=== PATIENT | male | born 1950 | race Caucasian/White ===

== ENCOUNTER 2022-06-20 07:45 | Observation (INO) | payer MEDICARE, SELFPAY ==
[2022-06-20] VITALS (47 sets, daily range): BP systolic 102–163; BP diastolic 57–85; PULSE 84–120; RESP 12–34; TEMP 36.8–36.9; O2SAT 87–100; BMI 23.7; BMI 24.9
--- NOTE | 2022-06-20 07:48 | CT_ITS ---
WS: [id number] CT ABDOMEN AND PELVIS WITH CONTRAST HISTORY: Lower abdominal pain with nausea and vomiting. TECHNIQUE: Imaging performed of the abdomen and pelvis with IV contrast. Single phase imaging of the abdomen. Coronal and sagittal reformats are submitted. All CT scans at [facility] use at [address] one of these dose optimization techniques: automated exposure control; mA and/or kV adjustment per patient size (includes targeted exams where dose is matched to clinical indication); or iterative re construction. IV CONTRAST: Omnipaque 350; 80 mL IV. Oral contrast: No DLP: 508.66 mGy.cm COMPARISON: None available. Lower thorax: Benign granuloma RIGHT lung base. Heart is normal size. Small hiatal hernia. Liver/biliary system: Normal size liver. There are a few very tiny low-attenuation nodules within the liver which cannot be further characterized due to their small size. No bile duct dilatation. Gallbladder: Normal. No gallstones or wall thickening. No pericholecystic fluid. Pancreas: Normal size pancreas and pancreatic duct. No adjacent inflammation. Spleen: Normal size with granulomata. Adrenal glands: Normal. Right kidney: Normal size RIGHT kidney. No significant perinephric stranding and no obstruction. Ther e are several very small nonobstructing calculi within the renal pelvis measuring up to 3 mm. Left kidney: Normal. Aorta: Mild atherosclerosis with no aneurysm. Lymphadenopathy: None. Free fluid: None. GI tract: Moderately well distended stomach. No significant wall thickening. No focal area of active enhancement or extravasation. No small bowel obstruction. Marked fecal retention and constipation in the cecum. The appendix appears normal. Numerous diverticula in the descending and sigmoid colon. Mil d luminal narrowing from chronic diverticulosis. No evidence for acute diverticulitis. No free fluid or abscess. Abdominal wall: Fat containing umbilical hernia. Pelvis: Well-distended urinary bladder. Calcifications in the seminal vesicles. No free fluid or eunice opathy. Bones: Mild degenerative disc disease and spondylitic changes in the lumbar spine. No destructive bon e lesions. CT/CT abdomen pelvis w con* [id number] IMPRESSION: 1. Extensive diverticulosis in the descending and sigmoid colon wall thickenin g. At this time no definite evidence for acute diverticulosis. 2. Marked constipation of the cecum. Normal appendix. 3. No free fluid or free air. 4. Small hiatal hernia. 5. Nonobstructing RIGHT renal calculi. 6. There are a few scattered too small to characterize hypodensities within th e liver. Differential includes small cysts or very early metastatic disease.
--- NOTE | 2022-06-20 08:04 | PC.NURSE ---
pt reports is vomiting blood. pt reports continuous nausea and abdominal pain. denies fevers or diarrhea. pt lung sounds clear bilat, skin pink/warm/dry. bowel sounds present x4. abdomen soft and tender to palpation.
--- NOTE | 2022-06-20 08:06 | ED_ITS ---
HPI - Abdominal Pain General: Chief Complaint: Abdominal Pain Stated Complaint: Vomitting blood Time Seen by Provider: 06/20/22 07:46 Source: patient Mode of arrival: ambulatory History of Present Illness: 71-year-old male presents emergency room with complaints of hematemesis. Began vomiting around midnight last night felt full and bloated throughout the night had multiple episodes of vomiting and then early this morning had hematemesis filled the bottom of a small trash can with what he states is about an inch or 2 of blood. He is not on any anticoagulants no history of previous abdominal surgeries no previous history of ulcers. No chest pain no shortness of breath. MD elicited complaint: abdominal pain Onset (ago): hour(s) Pain Consistency: constant Location: Epigastric Severity: moderate Quality: stabbing Radiation: none Migration to: no migration Exacerbating factors: vomiting Relieving factors: nothing Associated Symptoms: Reports bloating, GI cramping, dyspepsia and poor appetite; Denies anorexia, belching, change in bowel habits, change in stool character, chills, coffee ground emesis, constipation, diarrhea, dysuria, excessive flatus, fever(s), heartburn, hematochezia, hematuria, hematemesis, fecal incontinence, loose stools, melena, nausea, syncope and vomiting Review of Systems Const: Denies: fever(s), chills, body aches, change in appetite, fatigue or malaise ENMT: Denies: throat pain, ear or mastoid pain, nasal discharge or nasal congestion Card: Denies: chest pain, edema, syncope, dyspnea on exertion or orthopnea Resp: Denies: dyspnea, productive cough or non-productive cough GI: Reports: bloating and GI cramping; Denies: abdominal pain, nausea, vomiting, hematemesis, coffee ground emesis, heartburn, diarrhea, constipation, belching, excessive flatus, fecal incontinence, change in bowel habits, change in stool character, hematochezia or melena : Denies: flank pain, dysuria, urinary frequency, urinary urgency or hematuria Skin/Breast: Denies: rash or pruritus PFS ED PFSH: Medical History (Updated 06/20/22 @ 11:16 by Jossue Noble DO) Hyperlipidemia Hypertension Umbilical hernia Surgical History (Updated 06/20/22 @ 10:36 by Lukas Estrella MD) History of ankle surgery History of back surgery History of knee surgery History of tonsillectomy No pertinent past surgical history Family History (Updated 06/20/22 @ 10:36 by Lukas Estrella MD) Other Dementia Social History (Updated 06/20/22 @ 08:10 by Jossue Noble DO) Smoking and tobacco status: never smoked Alcohol intake: current Alcohol intake frequency: holidays/special occasions only Physical Exam Const: GENERAL APPEARANCE: cooperative and comfortable ORIENTATION/CONSCIOUSNESS: Yes awake, Yes oriented to person, Yes oriented to place and Yes oriented to time HENMT: COMMON NORMALS: normocephalic, atraumatic and hearing grossly normal bilaterally HEAD & SCALP: normocephalic and atraumatic Resp: COMMON NORMALS: normal respiratory effort, No retractions, No use of accessory muscles and clear to auscultation bilaterally AUSCULTATION: clear to auscultation bilaterally Cardio: COMMON NORMALS: regular rate, regular rhythm and No murmurs present (Cardio) RATE: regular rate RHYTHM: regular rhythm GI: COMMON NORMALS: No hepatosplenomegaly present AUSCULTATION: Yes normoactive bowel sounds PALPATION: Yes Tenderness to palpation present (GI) (Diffuse abdominal tenderness no guarding no rebound), No Guarding due to palpation present (GI) and Yes No hepatosplenomegaly present PERCUSSION: normal to percussion OTHER: Umbilical hernia mild tenderness easily reducible did cause some discomfort : COMMON NORMALS: Yes no CVA tenderness BLADDER/KIDNEY EXAM: Yes no CVA tenderness Back/Pelvis: COMMON NORMALS: no CVA tenderness Extremity: COMMON NORMALS: normal to inspection, capillary refill normal, no clubbing, cyanosis or edema, no calf tenderness and no pedal edema Neuro: SENSORIUM/ORIENTATION: Yes oriented to person, Yes oriented to place and Yes oriented to time Skin: COMMON NORMALS: no rashes or lesions noted GENERAL SKIN EXAM: no rashes or lesions noted Course Vital Signs: Vital signs: Vital Signs Temperature 98.3 F 06/20/22 08:48 Pulse Rate 107 H 06/20/22 13:45 Respiratory Rate 12 06/20/22 13:45 Blood Pressure 133/67 06/20/22 13:45 Pulse Oximetry 91 06/20/22 13:45 Oxygen Delivery Me thod 06/20/22 07:50 MDM - Abdominal Pain Medical Decision Making Labs and imaging reviewed. CT does not show any perforation. I am concerned about his tachycardia and his description of his significant amount of blood l oss. His initial hemoglobin is stable suspect it will decrease given the amount of blood he states he vomited. Vomiting of the blood began after he been vomiting for quite some time as it may very well be just a Yani-Dickens tear. He has no history of any esophageal varices. Discussed with Dr. Lopez on hospitalist service will admit to ICU he has been given IV fluids and Protonix. Orders are written Medical Records I reviewed the patient's medical records. Lab Data I reviewed the patient's lab results. : 06/20/22 12:48 06/20/22 08:20 Labs/Radiology: Radiology Impressions Abdomen/Pelvis CT 06/20/22 07:48 IMPRESSION: 1. Extensive diverticulosis in the descending and sigmoid colon wall thickening. At this time no definite evidence for acute diverticulosis. 2. Marked constipation of the cecum. Normal appendix. 3. No free fluid or free air. 4. Small hiatal hernia. 5. Nonobstructing RIGHT renal calculi. 6. There are a few scattered too small to characterize hypodensities within the liver. Differential includes small cysts or very early metastatic disease. Chest X-Ray 06/20/22 13:55 IMPRESSION: 1. Normal chest. Laboratory Results WBC 11.0 10^3/uL (4.0-10.0) H 06/20/22 08:20 RBC 5.12 10^6/uL (4.1-5.3) 06/20/22 08:20 Hgb 13.4 g/dL (11.7-16.6) 06/20/22 12:48 Hct 39.4 % (42.0-52.0) L 06/20/22 12:48 MCV 90.2 fl (80-94) 06/20/22 08:20 MCH 31.3 pg (28.0-34.0) 06/20/22 08:20 MCHC 34.6 g/dL (30.0-36.0) 06/20/22 08:20 RDW 12.0 % (12.1-15.1) L 06/20/22 08:20 Plt Count 259 10^3/cmm (130-400) 06/20/22 08:20 MPV 10.7 fL (7.4-10.4) H 06/20/22 08:20 Neut % (Auto) 91.2 % 06/20/22 08:20 Lymph % (Auto) 5.4 % 06/20/22 08:20 [place] % (Auto) 2.8 % 06/20/22 08:20 Eos % (Auto) 0.0 % 06/20/22 08:20 Baso % (Auto) 0.2 % 06/20/22 08:20 Neut # (Auto) 10.05 10^3/uL (1.8-7.7) H 06/20/22 08:20 Lymph # (Auto) 0.6 10^3/uL (0.8-4.8) L 06/20/22 08:20 [place] # (Auto) 0.3 10^3/uL (0.2-0.9) 06/20/22 08:20 Eos # (Auto) 0.0 10^3/uL (0.0-0.8) 06/20/22 08:20 Baso # (Auto) 0.0 10^3/uL (0.0-0.1) 06/20/22 08:20 Nucleated RBC % (auto) 0 % 06/20/22 08:20 Nucleated RBCs # 0.0 /100WBC 06/20/22 08:20 PT 12.20 SECONDS (12.1-14.9) 06/20/22 08:20 INR 0.87 (0.8-1.2) 06/20/22 08:20 APTT 23.9 SECONDS (23.9-36.7) 06/20/22 08:20 Sodium 138 mmol/L (136-145) 06/20/22 08:20 Potassium 4.0 mmol/L (3.5-5.1) 06/20/22 08:20 Chloride 99 mmol/L (98-107) 06/20/22 08:20 Carbon Dioxide 18 mmol/L (22-29) L 06/20/22 08:20 Anion Gap 25.0 (5-19) H 06/20/22 08:20 BUN 22 mg/dL (8-23) 06/20/22 08:20 Creatinine 0.9 mg/dL (0.7-1.2) 06/20/22 08:20 GFR Calculation 83.7 mL/min (90-130) L 06/20/22 08:20 Glucose 192 mg/dL (65-115) H 06/20/22 08:20 Estimat Average Glucose 108 06/20/22 08:20 Hemoglobin A1c 5.4 % (4.0-6.0) 06/20/22 08:20 Calculated Osmolality 295 mOsm/kg (285-295) 06/20/22 08:20 Calcium 10.4 mg/dL (8.5-10.5) 06/20/22 08:20 Total Bilirubin 0.9 mg/dL (0.15-1.2) 06/20/22 08:20 AST 26 U/L (0-40) 06/20/22 08:20 ALT 28 U/L (0-41) 06/20/22 08:20 Alkaline Phosphatase 62 U/L (40-130) 06/20/22 08:20 Total Protein 7.9 g/dL (6.6-8.7) 06/20/22 08:20 Albumin 5.0 g/dL (3.5-5.2) 06/20/22 08:20 Globulin 2.9 g/dL (1.3-4.6) 06/20/22 08:20 Lipase 24 U/L (13-60) 06/20/22 08:20 Blood Type A Positive 06/20/22 08:20 Rho(D) Type Positive 06/20/22 08:20 Antibody Screen Negative 06/20/22 08:20 Discharge Plan Discharge Patient Disposition: Admitted As Inpatient Clinical Impression: Upper GI bleed, Hypertension, Umbilical hernia Condition: Stable Coding Level of Care Code ED Over Short And Damage Clerk for Chg Fwd Exam Comprehensive
[2022-06-20 08:29] LABS: Basophils % 0.2 %; Hematocrit 46.2 % (42.0-52.0); Lymphocytes # 0.6 10^3/uL (0.8-4.8); Lymphocytes % 5.4 %; Mean Corpuscular HGB Conc 34.6 g/dL (30.0-36.0); Mean Corpuscular Hemoglobin 31.3 pg (28.0-34.0); Mean Corpuscular Volume 90.2 fl (80-94); Mean Platelet Volume 10.7 fL (7.4-10.4); Monocytes # 0.3 10^3/uL (0.2-0.9); Monocytes % 2.8 %; Neutrophils # 10.05 10^3/uL (1.8-7.7); Neutrophils % 91.2 %; Nucleated Red Blood Cells % 0 %; Platelet Count 259 10^3/cmm (130-400); Red Blood Count 5.12 10^6/uL (4.1-5.3)
[2022-06-20] MEDS: sodium chloride 0.9% 1,000 ML 999 ML IV (08:36)
[2022-06-20] MEDS: ondansetron 2 mg/ML SDV 2 mL 4 MG IVP (08:37)
[2022-06-20] MEDS: morphine 4 mg/mL SDV 1 mL IVP (08:40)
[2022-06-20] MEDS: pantoprazole 40 mg SDV 80 MG IVP (08:45)
[2022-06-20 08:54] LABS: INR 0.87 (0.8-1.2)
[2022-06-20 08:55] LABS: Partial Thromboplastin Time 23.9 SECONDS (23.9-36.7)
[2022-06-20 08:57] LABS: Alanine Aminotransferase 28 U/L (0-41); Alkaline Phosphatase 62 U/L (40-130); Blood Urea Nitrogen 22 mg/dL (8-23); Calcium 10.4 mg/dL (8.5-10.5); Carbon Dioxide 18 mmol/L (22-29); Chloride 99 mmol/L (98-107); Globulin 2.9 g/dL (1.3-4.6); Glomerular Filtration Rate 83.7 mL/min (90-130); Glucose 192 mg/dL (65-115); Osmolality Calculated 295 mOsm/kg (285-295); Sodium 138 mmol/L (136-145); Total Bilirubin 0.9 mg/dL (0.15-1.2); Total Protein 7.9 g/dL (6.6-8.7)
[2022-06-20 08:59] LABS: Aspartate Amino Transferase 26 U/L (0-40)
--- NOTE | 2022-06-20 09:07 | PC.NURSE ---
spoke with Karen, admissions nurse at [facility] regarding possible placement.
[2022-06-20] MEDS: iohexol 350 mg/mL 100 mL Btl IV (09:10)
--- NOTE | 2022-06-20 09:29 | PC.NURSE ---
pt reports resolution of nausea and significant improvement of pain. call light in reach, lights dimmed for comfort. updated pt on plan of care, denies questions or needs at this time.
--- NOTE | 2022-06-20 09:34 | PC.NURSE ---
pt oxygen noted to be 88% on room air, placed on 2L/NC.
[2022-06-20] MEDS: lactated ringers 1,000 ML 999 ML IV (09:56)
--- NOTE | 2022-06-20 10:31 | P.HP_ITS ---
Providers/Chief Complaint Admitting Physician: Lukas Estrella Primary Care Provider: Shanell Ramirez Chief Complaint: Vomitting blood History of Present Illness Rene Chandler is a 71 year old male presenting to the emergency department with history of hematemesis. He states he started vomiting around 7 last night, and vomited repetitively. Initially it was not blood but this morning around 7 AM he vomited a fairly large amount of blood, he believes about a quarter of a gallon. He vomited a little bit more after this, but after arrival to the emergency department and treatment of nausea ensued as well as fluids he has had no further hematemesis. He was quite tachycardic on arrival. He reports occasional ibuprofen use. He denies any history of liver disease or varices. He has never had an EGD before or had this happen before. He reports no recent illness. Denies any constipation reported he has bowel movements twice daily. Review of Systems General: Reports: 10 or more systems reviewed and unremarkable except in HPI and below Const: Denies: fever(s) or chills Eyes: Denies: change in vision ENMT: Denies: throat pain Card: Denies: chest pain Resp: Denies: dyspnea GI: Reports: abdominal pain, nausea, vomiting and hematemesis; Denies: hematochezia or melena : Denies: flank pain Musc: Denies: neck pain Skin/Breast: Denies: rash Neuro: Denies: headache(s) Psych: Denies: anxiety or depression Endo: Denies: polyuria Ugo/Lymph: Denies: easy bruising All/Imm: Denies: urticaria Medications/Allergies Home Medications Medication Instructions Recorded Confirmed Last Taken Type albuterol sulfate 90 mcg/actuation 2 puff inhalation Q4H PRN 06/20/22 06/20/22 Unknown History aerosol inhaler Shortness Of Breath ascorbic acid (vitamin C) 500 mg 500 mg PO DAILY@06/20/22 06/20/22 Unknown History chewable tablet cholecalciferol (vitamin D3) 25 25 mcg PO DAILY@06/20/22 06/20/22 Unknown History mcg (1,000 unit) capsule (Vitamin D3) lisinopril 10 mg tablet 10 mg PO BEDTIME 06/20/22 06/20/22 06/19/22 History multivitamin 1 tab PO DAILY@06/20/2222 Unknown History simvastatin 40 mg tablet 40 mg PO BEDTIME 06/20/22 06/20/22 06/19/22 History Allergies Allergy/AdvReac Type Severity Reaction Status Date / Time No Known Allergies Allergy Verified 06/20/22 09:59 PFSH Acute PFSH: Medical History (Updated 06/20/22 @ 10:44 by Lukas Estrella MD) Hyperlipidemia Hypertension Umbilical hernia Surgical History (Updated 06/20/22 @ 10:36 by Lukas Estrella MD) History of ankle surgery History of back surgery History of knee surgery History of tonsillectomy No pertinent past surgical history Family History (Updated 06/20/22 @ 10:36 by Lukas Estrella MD) Other Dementia Social History (Updated 06/20/22 @ 08:10 by Jossue Noble DO) Smoking and tobacco status: never smoked Alcohol intake: current Alcohol intake frequency: holidays/special occasions only Vitals/I&O/Wt Last Vital Signs Temp 98.3 F 06/20/22 08:48 Pulse 108 H 06/20/22 10:00 Resp 16 06/20/22 10:00 BP 122/64 06/20/22 10:00 Pulse Ox 97 06/20/22 10:00 O2 Del Method 06/20/22 07:50 06/19/22 06/20/22 06/20/22 22:59 06:59 14:59 Intake Total 1000 / 1000 Balance 1000 / 1000 Weight last 48 hrs Weight 81.647 kg Physical Exam Narrative: General exam is a white male, currently reporting only mild abdominal pain, no distress HEENT: Atraumatic normocephalic. Pupils equally round. Oropharynx clear. Neck is supple no lymphadenopathy or thyromegaly Cardiovascular tachycardic, no murmur, regular Lungs clear no wheezing or crackles Abdomen slight tenderness, more central. No rebound. Positive bowel sounds. No obvious organomegaly exam is deferred Extremities no cyanosis clubbing or edema, cap refill brisk Skin no rash Neuro no obvious focal deficits. Data : 06/20/22 08:20 06/20/22 08:20 Other Labs: INR 0.87 LFTs normal Glucose elevated at 192 Calcium 10.4 I have ordered a lipase Abdominal pelvis CT demonstrates extensive diverticulosis, no evidence of diverticulitis. Significant stool in the cecum. Small hiatal hernia. Nonob structing right renal calculi. Few scattered hypodensities within the liver. Differential wide but would require further follow-up. A&P Assessment and plan (1) Upper GI bleed: Patient reports significant vomiting starting last night with hematemesis but this morning. Differential includes ulcer, Yani-Dickens tear. He uses anti- inflammatories on rare occasion. Does have quite a bit of caffeine use. N.p.o. Hydration Serial hemoglobins Protonix drip Consult surgery for possible EGD Monitor for any further bleeding (2) Abdominal pain: Check lipase Monitor for resolution (3) Hypertension: Continue home medication (4) Hyperlipidemia: Continue home medication Plan Abnormal scan of liver. Several small areas seen in the liver, 2 small to characterize. Consider follow-up with screening colonoscopy, follow-up scan as outpatient. Discussed this in detail with the patient Hyperglycemia. Check hemoglobin A1c Full code SCDs for DVT prophylaxis. Anticoagulation contraindicated secondary to GI bleed. Attestations Medical Necessity Statement*: Will need less than 2 midnight stay for evaluati on of GI bleeding Coding Level of Care Code Acute Measuring Machine Tender for Chg Fwd Diagnoses Upper GI bleed K92.2 Abdominal pain R10.9 Hypertension I10 Hyperlipidemia E78.5
[2022-06-20 10:59] LABS: Lipase 24 U/L (13-60)
[2022-06-20 11:12] LABS: Estmated Average Glucose 108; Hemoglobin A1C 5.4 % (4.0-6.0)
--- NOTE | 2022-06-20 11:29 | PC.NURSE ---
attempted to return pt to room air, pt oxgyen returned to 87-88%. placed pt back on 2L/NC
[2022-06-20] MEDS: pantoprazole 40 MG in sodium chloride 0.9% (plus) 100 ML 20 MG IV ×3 (12:14→21:59)
[2022-06-20 13:21] LABS: Hematocrit 39.4 % (42.0-52.0); Hemoglobin 13.4 g/dL (11.7-16.6)
--- NOTE | 2022-06-20 13:55 | XR_ITS ---
WS: [id number] Exam: XR chest 1V portable [id number] Date/Time of Exam: 06/20/2022 1:56 PM Reason For Exam: vomiting No priors. The lungs are clear and fully inflated. Normal cardiomediastinal silhouette. No pleural effusions. Re gional bony elements are intact. Monitoring leads superimpose the chest. XR/XR chest 1V portable [id number] IMPRESSION: 1. Normal chest.
--- NOTE | 2022-06-20 14:49 | PM.CONSULT ---
Providers/Reason For Consult Consulting Physician/Specialty*: Dr. Chip Mcmahon, DO/General surgery Reason for Consult*: hematemesis Attending Physician: Lukas Estrella MD History of Present Illness History of Present Illness Rene Chandler is a 71 year old male Who presented to the hospital with a 1 day history of emesis and hematemesis. He reports that he may have drank a bad protein shake that he bought with a broken seal. He woke up at midnight with nausea and vomiting and epigastric pain. The pain did not radiate. Palpation made the pain worse. Nothing made the pain better. He denies any fever or chills. Denies any diarrhea or constipation. After vomiting for 7 hours he started having coffee-ground emesis. For this reason he came to the hospital. He has not had any further emesis since 7 AM Review of Systems General: Reports: 10 or more systems reviewed and unremarkable except in HPI and below Medications/Allergies Home Medications Medication Instructions Recorded Confirmed Last Taken Type albuterol sulfate 90 mcg/actuation 2 puff inhalation Q4H PRN 06/20/22 06/20/22 Unknown History aerosol inhaler Shortness Of Breath ascorbic acid (vitamin C) 500 mg 500 mg PO DAILY@06/20/22 06/20/22 Unknown History chewable tablet cholecalciferol (vitamin D3) 25 25 mcg PO DAILY@06/20/22 06/20/22 Unknown History mcg (1,000 unit) capsule (Vitamin D3) lisinopril 10 mg tablet 10 mg PO BEDTIME 06/20/22 06/20/22 06/19/22 History multivitamin 1 tab PO DAILY@06/20/22 06/20/22 Unknown History simvastatin 40 mg tablet 40 mg PO BEDTIME 06/20/22 06/20/22 06/19/22 History Allergies Allergy/AdvReac Type Severity Reaction Status Date / Time No Known Allergies Allergy Verified 06/20/22 09:59 Current Medications Generic Name Dose Route Start Last Admin Trade Name Freq PRN Reason Stop Dose Admin Pantoprazole Sodium 40 mg/ 100 mls @ 20 mls/hr 06/20/22 11:15 06/20/22 16:52 Sodium Chloride IV 8 mg/hr .Q5H PATRICIO 20 mls/hr Administration 8 MG/HR PFSH Acute PFSH: Medical History Hyperlipidemia Hypertension Umbilical hernia Surgical History History of ankle surgery History of back surgery History of knee surgery History of tonsillectomy No pertinent past surgical history Family History Other Dementia Social History Smoking and tobacco status: never smoked Alcohol intake: current Alcohol intake frequency: holidays/special occasions only Vitals/I&O/Wt Last Vital Signs Temp 98.3 F 06/20/22 08:48 Pulse 92 06/20/22 16:30 Resp 22 H 06/20/22 14:15 BP 115/63 06/20/22 16:30 Pulse Ox 89 L 06/20/22 16:30 O2 Del Method 06/20/22 07:50 06/20/22 06/20/22 06/20/22 06:59 14:59 22:59 Intake Total 1999 92.667 / 2092.667 Balance 1999 92.667 / 2092.667 Weight last 48 hrs Weight 180 lb Physical Exam Narrative: General : Patient is well developed , no acute distress, oriented x3 Head : Normal cephalic, a-traumatic. Ears : Pinnae and external canal are normal. Hearing is normal. Eyes : PERRLA, Sclera and injection are normal. No conjunctival discharge. Nose : Mucous membranes are without erythema. Throat : buccal mucosa is normal, gums are without significant recession or hypertrophy. Lungs : Equal chest rise bilaterally, no use of accessory muscles, trachea is midline. Cor : Rate and rhythm are normal. Abdomen : Soft, ND, mild epigastric tenderness, no g/r/m Extremities : No edema, no cyanosis or clubbing, dorsalis pedis pulses are present bilaterally, non-tender to palpation of calves. Upper extremities are normal bilaterally. Back : non-tender to palpation, no CVA tenderness. Neuro : CN II - XII intact, Upper and lower extremities have equal and full strength Data : 06/20/22 18:00 06/20/22 08:20 A&P Assessment and plan (1) Upper GI bleed: Plan EGD in AM The risks and benefits of the procedure, including bleeding, infection, intestinal perforation requiring surgery, missed lesion, or explained to the patient. He is understanding of the risks and wishes to proceed. Coding Level of Care Code Acute Prototype Carpenter for g Fwd Diagnoses Upper GI bleed K92.2
--- NOTE | 2022-06-20 17:07 | PC.NURSE ---
updated pt with plan of care and that per hospitalist, pt to remain NPO
--- NOTE | 2022-06-20 17:48 | PC.NURSE ---
report called to Erin, on Med Surg
[2022-06-20 18:09] LABS: Hematocrit 39.6 % (42.0-52.0); Hemoglobin 13.6 g/dL (11.7-16.6)
[2022-06-20] MEDS: sodium chloride 0.9% 1,000 ML 125 ML IV (18:42)
[2022-06-20] MEDS: atorvastatin 40 mg Tablet 20 MG PO (20:21)
[2022-06-20] MEDS: lisinopril 10 mg Tablet PO (20:21)
[2022-06-21] VITALS (13 sets, daily range): BP systolic 137–182; BP diastolic 68–110; PULSE 62–98; RESP 16–24; TEMP 36.4–36.9; O2SAT 95–99
[2022-06-21] MEDS: sodium chloride 0.9% 1,000 ML 125 ML IV ×3 (02:02→17:34)
[2022-06-21] MEDS: pantoprazole 40 MG in sodium chloride 0.9% (plus) 100 ML 20 MG IV ×3 (02:55→13:31)
[2022-06-21 05:00] LABS: Basophils % 0.3 %; Eosinophils # 0.1 10^3/uL (0.0-0.8); Hematocrit 40.8 % (42.0-52.0); Hemoglobin 13.3 g/dL (11.7-16.6); Lymphocytes % 19.6 %; Mean Corpuscular HGB Conc 32.6 g/dL (30.0-36.0); Mean Corpuscular Hemoglobin 31.1 pg (28.0-34.0); Mean Corpuscular Volume 95.6 fl (80-94); Mean Platelet Volume 10.5 fL (7.4-10.4); Monocytes # 0.7 10^3/uL (0.2-0.9); Monocytes % 6.8 %; Neutrophils # 7.17 10^3/uL (1.8-7.7); Neutrophils % 71.9 %; Nucleated Red Blood Cells % 0 %; Platelet Count 197 10^3/cmm (130-400); Red Blood Count 4.27 10^6/uL (4.1-5.3); Red Cell Distribution Width 12.7 % (12.1-15.1)
[2022-06-21 05:29] LABS: Anion Gap 11.9 (5-19); Blood Urea Nitrogen 15 mg/dL (8-23); Calcium 8.8 mg/dL (8.5-10.5); Carbon Dioxide 23 mmol/L (22-29); Chloride 110 mmol/L (98-107); Glomerular Filtration Rate 95.8 mL/min (90-130); Glucose 108 mg/dL (65-115); Osmolality Calculated 293 mOsm/kg (285-295); Potassium 3.9 mmol/L (3.5-5.1); Sodium 141 mmol/L (136-145)
[2022-06-21] MEDS: sodium chloride 0.9% 1,000 ML 30 ML IV (10:46)
--- NOTE | 2022-06-21 11:06 | W.PM.OPSUD ---
Surgery/Procedure H&P Update DATE OF PROCEDURE: June 21, 2022 DATE H&P PERFORMED: 06/20/22 PREOP DIAGNOSIS: GI bleed PLANNED PROCEDURE: Operation Date: 06/21/22 11:30 Proposed Procedures p EGD(Not Applicable) - Chip Mcmahon DO
--- NOTE | 2022-06-21 11:20 | ANES.PREANE2 ---
Pre-Anesthetic Assessment Height/Weight: Height 1.85 m Weight 86.891 kg Temp Pulse Resp BP Pulse Ox O2 Del Method 97.7 F 94 18 143/86 96 06/21/22 10:24 06/21/22 10:24 06/21/22 10:24 06/21/22 10:24 06/21/22 10:24 06/21/22 10:24 Preop Diagnosis: GI bleed Operation Date: 06/21/22 11:30 Proposed Procedures p EGD(Not Applicable) - Chip Mcmahon DO Familial anesthetic complications: none Was Beta Miles taken within 24 hours: N/A Was Clonidine taken within 24 hours: N/A Last intake: Intake Last Liquid Date 06/20/22 Last Liquid Time 22:00 Last Solid Date 06/19/22 Last Solid Time 18:00 Social No alcohol and No tobacco Exam alert and oriented x 3 Airway Submandibular: within normal limits Cervical ROM: within normal limits Mallampati: Class I Dentition: full History/ROS No significant history except as noted CV/HEM Hypertension None reported Hepatic None reported GI None reported Metabolic None reported Musc/skel None reported Neuropsych None reported Anesthetic Plan ASA status: 2 Anesthesia: Anesthesia Evaluation and MAC Risk of > 500 ml blood loss (7ml/kg in children): No Medications/Allergies Home Medications Medication Instructions Recorded Confirmed Last Taken Type albuterol sulfate 90 mcg/actuation 2 puff inhalation Q4H PRN 06/20/22 06/20/22 Unknown History aerosol inhaler Shortness Of Breath ascorbic acid (vitamin C) 500 mg 500 mg PO DAILY@06/20/22 06/20/22 Unknown History chewable tablet cholecalciferol (vitamin D3) 25 25 mcg PO DAILY@06/20/22 06/20/22 Unknown History mcg (1,000 unit) capsule (Vitamin D3) lisinopril 10 mg tablet 10 mg PO BEDTIME 06/20/22 06/20/22 06/19/22 History multivitamin 1 tab PO DAILY@06/20/22 06/20/22 Unknown History simvastatin 40 mg tablet 40 mg PO BEDTIME 06/20/22 06/20/22 06/19/22 History Allergies Allergy/AdvReac Type Severity Reaction Status Date / Time No Known Allergies Allergy Verified 06/20/22 09:59 Current Medications Generic Name Dose Route Start Last Admin Trade Name Freq PRN Reason Stop Dose Admin Atorvastatin Calcium 20 mg 06/20/22 21:00 06/20/22 20:21 Atorvastatin 40 Mg Tablet PO 20 mg BEDTIME PATRICIO Administration Pantoprazole Sodium 40 mg/ 100 mls @ 20 mls/hr 06/20/22 11:15 06/21/22 08:07 Sodium Chloride IV 8 mg/hr .Q5H PATRICIO 20 mls/hr Administration 8 MG/HR Sodium Chloride 1,000 mls @ 125 mls/hr 06/20/22 18:28 06/21/22 10:12 Sodium Chloride 0.9% IV 125 mls/hr .Q8H PATRICIO Administration Sodium Chloride 1,000 mls @ 30 mls/hr 06/21/22 10:30 06/21/22 10:46 Sodium Chloride 0.9% IV 06/22/22 10:29 30 mls/hr .Q24H PATRICIO Administration Lisinopril 10 mg 06/20/22 21:00 06/20/22 20:21 Lisinopril 10 Mg Tablet PO 10 mg BEDTIME PATRICIO Administration PFSH Anesthesia Medical History Hyperlipidemia Hypertension Umbilical hernia Surgical History History of ankle surgery History of back surgery History of knee surgery History of tonsillectomy No pertinent past surgical history Family History Other Dementia Social History Smoking and tobacco status: never smoked Alcohol intake: current Alcohol intake frequency: holidays/special occasions only Data Anesthesia : 06/21/22 04:27 06/21/22 04:27 Short CBC 06/20/22 06/20/22 06/20/22 Range/Units 08:20 12:48 18:00 WBC 11.0 H (4.0-10.0) 10^3/uL Hgb 16.0 13.4 13.6 (11.7-16.6) g/dL Hct 46.2 39.4 L 39.6 L (42.0-52.0) % MCV 90.2 (80-94) fl Plt Count 259 (130-400) 10^3/cmm Neut % (Auto) 91.2 % Neut # (Auto) 10.05 H (1.8-7.7) 10^3/uL 06/21/22 Range/Units 04:27 WBC 10.0 (4.0-10.0) 10^3/uL Hgb 13.3 (11.7-16.6) g/dL Hct 40.8 L (42.0-52.0) % MCV 95.6 H D (80-94) fl Plt Count 197 (130-400) 10^3/cmm Neut % (Auto) 71.9 % Neut # (Auto) 7.17 (1.8-7.7) 10^3/uL BMP 06/20/22 06/21/22 08:20 04:27 Sodium 138 141 Potassium 4.0 3.9 Chloride 99 110 H Carbon Dioxide 18 L 23 BUN 22 15 Creatinine 0.9 0.8 Glucose 192 H 108 Calcium 10.4 8.8 Liver Function 06/20/22 Range/Units 08:20 Total Bilirubin 0.9 (0.15-1.2) mg/dL AST 26 (0-40) U/L ALT 28 (0-41) U/L Alkaline Phosphatase 62 (40-130) U/L Albumin 5.0 (3.5-5.2) g/dL Blood Bank 06/20/22 08:20 Blood Type A Positive Rho(D) Type Positive Antibody Screen Negative Coags 06/20/22 08:20 PT 12.20 INR 0.87 APTT 23.9 Cardiac Studies: No Data to Display
[2022-06-21] MEDS: ondansetron 2 mg/ML SDV 2 mL 4 MG IVP ×2 (11:44→13:39)
[2022-06-21] MEDS: morphine 4 mg/mL SDV 1 mL IVP ×2 (12:50→17:02)
[2022-06-21 14:27] LABS: Glucose Point of Care 117 mg/dL (70-110)
--- NOTE | 2022-06-21 14:51 | ECG_ITS ---
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 Measurements Intervals Malin Rate: 68 P: 3 MI: 143 QRS: 24 QRSD: 73 T: 46 QT: 389 QTc: 416 Interpretive Statements SINUS RHYTHM WITH FREQUENT SUPRAVENTRICULAR PREMATURE COMPLEXES ABNORMAL RHYTHM ECG No previous ECG available for comparison Electronically Signed On 06-21-2022 20:36:21 CDT by Kj Barajas M.D. [id number]
--- NOTE | 2022-06-21 15:24 | PM.PN ---
Subjective Subjective: Patient underwent EGD this morning. Concern of De Paz's was noted, as well as gastritis. No obvious bleeding or bleeding site. Following the procedure he has had some abdominal pain. There was concern of incarcerated umbilical hernia reduced by surgery. Patient currently believes it is likely that he needs to have a bowel movement as the pain is lower. I have given him a glycerin suppository. An EKG was also performed which demonstrated no acute changes. Medications: Reviewed: Yes Vitals/I&O/Wt Last Vital Signs Temp 98.2 F 06/21/22 13:33 Pulse 92 06/21/22 13:33 Resp 24 H 06/21/22 13:33 BP 154/92 06/21/22 13:33 Pulse Ox 99 06/21/22 13:33 O2 Del Method 06/21/22 13:33 06/21/22 06/21/22 06/21/22 06:59 14:59 22:59 Intake Total 1015.334 / 3208.001 1800 / 1800 Output Total 200 / 1000 290 / 290 Balance 815.334 / 2208.001 1510 / 1510 Weight last 48 hrs Weight 86.891 kg Weight 85.638 kg Weight 81.647 kg Physical Exam Narrative: General exam is a white male, complaining of some periumbilical, to infraumbilical discomfort currently. Neck is supple no lymphadenopathy thyromegaly Cardiovascular regular rate and rhythm, no murmur Lungs clear no wheezing or crackles Abdomen tenderness, infraumbilical and periumbilical area. I do not feel any incarceration of his small umbilical hernia currently. Extremities no cyanosis clubbing or edema Data : 06/21/22 04:27 06/21/22 04:27 A&P Assessment and plan (1) Upper GI bleed: Patient reports significant vomiting starting last night with hematemesis but this morning. Differential includes ulcer, Yani-Dickens tear. He uses anti-inflammatories on rare occasion. Does have quite a bit of caffeine use. No further bleeding since last night EGD demonstrates no obvious bleeding site. He still could have had a Yani-Dickens tear which is in the healing process. Was maintained on a Protonix drip. Discontinue and changed IV every 12 hours Appreciate surgical consultation He is now having some significant abdominal pain. This may be related to increased stool burden he had on CT on presentation. Dulcolax suppository given. Surgery will follow up as well. (2) Abdominal pain: Lipase was normal See above (3) Hypertension: Continue home medication (4) Hyperlipidemia: Continue home medication Plan Abnormal scan of liver. Several small areas seen in the liver, 2 small to characterize. Consider follow-up with screening colonoscopy, follow-up scan as outpatient. Discussed this in detail with the patient Hyperglycemia. Hemoglobin A1c was checked and normal. Full code SCDs for DVT prophylaxis. Anticoagulation contraindicated secondary to GI bleed. Attestations Medical Necessity Statement*: If abdominal pain continues, further work-up may be required and he will need continued hospitalization. If this resolves, consideration of discharge will occur later this afternoon/evening. Coding Level of Care Code Acute [employer] Supervisor for Avelina Lomax Diagnoses Upper GI bleed K92.2 Abdominal pain R10.9 Hypertension I10 Hyperlipidemia E78.5
[2022-06-21] MEDS: bisacodyl 10 mg Supp PR (15:27)
--- NOTE | 2022-06-21 16:54 | XRR_ITS ---
PROCEDURE INFORMATION: Exam: XR Abdomen Exam date and time: 06/21/2022 5:47 PM Age: 71 years old Clinical indication: Abdominal pain; Epigastric; Additional info: Pain. Nausea TECHNIQUE: Imaging protocol: Radiologic exam of the abdomen. Views: Frontal supine view of the abdomen. 1 View. COMPARISON: CT abdomen pelvis w con* [id number] 06/20/2022 9:08 AM FINDINGS: Gastrointestinal tract: Normal. No bowel dilation. Bones/joints: Unremarkable. XR/XR abdomen 1V* [id number] IMPRESSION: No acute findings.
[2022-06-21] MEDS: atorvastatin 40 mg Tablet 20 MG PO (22:07)
[2022-06-21] MEDS: lisinopril 10 mg Tablet PO (22:09)
[2022-06-21] MEDS: Fleet Enema 133 mL Enema PR (22:10)
[2022-06-21] MEDS: pantoprazole 40 mg SDV IVP (22:15)
[2022-06-22] VITALS: BP 115/60; PULSE 78; RESP 18; TEMP 36.9; O2SAT 97
[2022-06-22] MEDS: sodium chloride 0.9% 1,000 ML 125 ML IV (02:26)
[2022-06-22 04:00] VITALS: BP 134/69; PULSE 75; RESP 16; TEMP 36.6; O2SAT 98
[2022-06-22 05:11] LABS: Basophils % 0.2 %; Eosinophils # 0.1 10^3/uL (0.0-0.8); Eosinophils % 0.5 %; Hematocrit 37.9 % (42.0-52.0); Hemoglobin 12.2 g/dL (11.7-16.6); Lymphocytes # 2.3 10^3/uL (0.8-4.8); Lymphocytes % 23.3 %; Mean Corpuscular HGB Conc 32.2 g/dL (30.0-36.0); Mean Corpuscular Hemoglobin 31.3 pg (28.0-34.0); Mean Corpuscular Volume 97.2 fl (80-94); Mean Platelet Volume 10.5 fL (7.4-10.4); Monocytes # 0.8 10^3/uL (0.2-0.9); Monocytes % 7.7 %; Neutrophils # 6.83 10^3/uL (1.8-7.7); Neutrophils % 67.8 %; Nucleated Red Blood Cells % 0 %; Platelet Count 199 10^3/cmm (130-400); Red Cell Distribution Width 12.5 % (12.1-15.1); White Blood Count 10.1 10^3/uL (4.0-10.0)
[2022-06-22 05:44] LABS: Alanine Aminotransferase 19 U/L (0-41); Albumin Level 3.4 g/dL (3.5-5.2); Alkaline Phosphatase 52 U/L (40-130); Aspartate Amino Transferase 22 U/L (0-40); Blood Urea Nitrogen 11 mg/dL (8-23); Calcium 8.2 mg/dL (8.5-10.5); Carbon Dioxide 22 mmol/L (22-29); Chloride 107 mmol/L (98-107); Globulin 1.9 g/dL (1.3-4.6); Glomerular Filtration Rate 111.8 mL/min (90-130); Glucose 93 mg/dL (65-115); Osmolality Calculated 287 mOsm/kg (285-295); Sodium 139 mmol/L (136-145); Total Bilirubin 0.7 mg/dL (0.15-1.2); Total Protein 5.3 g/dL (6.6-8.7)
[2022-06-22 05:49] LABS: Anion Gap 13.7 (5-19); Potassium 3.7 mmol/L (3.5-5.1)
[2022-06-22 06:00] VITALS: BMI 25.2
[2022-06-22 08:00] VITALS: BP 154/78; PULSE 89; RESP 16; TEMP 36.6; O2SAT 95
--- NOTE | 2022-06-22 08:20 | PM.DCS ---
Discharge Providers Date of Admission: 06/20/22 18:28 Date of Discharge: June 22, 2022 Attending Provider at Admission: Lukas Estrella MD Attending Provider at Discharge: Lukas Estrella MD Diagnoses at Discharge Discharge Diagnosis (1) Upper GI bleed: Status: Acute (2) Abdominal pain: Status: Acute (3) Hypertension: Status: Acute (4) Hyperlipidemia: Status: Acute Reason for Visit Reason for Visit: Vomitting blood Hospital Course Hospital Course Mr. Chandler is a 71-year-old white male who presented to the hospital with complaints of abdominal pain, intractable nausea and vomiting, and ultimately an upper GI bleed. He was placed on a Protonix drip, and serial hemoglobins were obtained. CT scan demonstrated diverticulosis, some liver lesions too small to characterize, small hiatal hernia, increased stool burden at the cecum. Surgery was consulted for EGD. Over the course of his hospitalization hemoglobin did drop from 16-12 on discharge. He had no recurrent bleeding. EGD demonstrated concerns of De Paz's esophagus, gastritis. It was thought he likely had a bleed from a Yani-Dickens tear, that was in the healing process. Following the EGD he had some significant pain. Abdominal series was not revealing. This improved with several bowel movements. Today, June 22 he was without pain and tolerating p.o. It was thought he could be discharged home. He will follow-up with surgery in 2 weeks regarding possible need for colonoscopy, follow-up biopsy results and hospital stay. He will also follow-up with his primary care provider. Both of these follow-ups are to also review the CT findings of small areas in his liver too small to characterize. I discussed with the patient that he will need reimaging of this at some point in the future to be determined by him and his primary care provider and he should definitely have a screening colonoscopy. Physical Exam Narrative: General exam no distress Neck is supple no lymphadenopathy thyromegaly Cardiovascular regular rate and rhythm without murmur Lungs clear no wheezing or crackles Abdomen soft nontender positive bowel sounds Extremities no cyanosis clubbing or edema Discharge Data Studies Completed and Pending Completed Studies During Hospitalization Category Date Time Status CT abdomen pelvis w con* [id number] Stat Cat Scan 06/20/22 07:48 Completed XR abdomen 1V* [id number] Stat Exams 06/21/22 16:54 Completed XR chest 1V portable [id number] Stat Exams 06/20/22 13:55 Completed Pending at discharge Category Date Time Status Pathology: Surgical [PTH] Routine Pth 06/21/22 11:31 Received Radiology Impressions Abdomen/Pelvis CT 06/20/22 07:48 IMPRESSION: 1. Extensive diverticulosis in the descending and sigmoid colon wall thickening. At this time no definite evidence for acute diverticulosis. 2. Marked constipation of the cecum. Normal appendix. 3. No free fluid or free air. 4. Small hiatal hernia. 5. Nonobstructing RIGHT renal calculi. 6. There are a few scattered too small to characterize hypodensities within the liver. Differential includes small cysts or very early metastatic disease. Chest X-Ray 06/20/22 13:55 IMPRESSION: 1. Normal chest. Abdomen X-Ray 06/21/22 16:54 IMPRESSION: No acute findings. Laboratory Results WBC 10.1 10^3/uL (4.0-10.0) H 06/22/22 04:10 RBC 3.90 10^6/uL (4.1-5.3) L 06/22/22 04:10 Hgb 12.2 g/dL (11.7-16.6) 06/22/22 04:10 Hct 37.9 % (42.0-52.0) L 06/22/22 04:10 MCV 97.2 fl (80-94) H 06/22/22 04:10 MCH 31.3 pg (28.0-34.0) 06/22/22 04:10 MCHC 32.2 g/dL (30.0-36.0) 06/22/22 04:10 RDW 12.5 % (12.1-15.1) 06/22/22 04:10 Plt Count 199 10^3/cmm (130-400) 06/22/22 04:10 MPV 10.5 fL (7.4-10.4) H 06/22/22 04:10 Neut % (Auto) 67.8 % 06/22/22 04:10 Lymph % (Auto) 23.3 % 06/22/22 04:10 [place] % (Auto) 7.7 % 06/22/22 04:10 Eos % (Auto) 0.5 % 06/22/22 04:10 Baso % (Auto) 0.2 % 06/22/22 04:10 Neut # (Auto) 6.83 10^3/uL (1.8-7.7) 06/22/22 04:10 Lymph # (Auto) 2.3 10^3/uL (0.8-4.8) 06/22/22 04:10 [place] # (Auto) 0.8 10^3/uL (0.2-0.9) 06/22/22 04:10 Eos # (Auto) 0.1 10^3/uL (0.0-0.8) 06/22/22 04:10 Baso # (Auto) 0.0 10^3/uL (0.0-0.1) 06/22/22 04:10 Nucleated RBC % (auto) 0 % 06/22/22 04:10 Nucleated RBCs # 0.0 /100WBC 06/22/22 04:10 PT 12.20 SECONDS (12.1-14.9) 06/20/22 08:20 INR 0.87 (0.8-1.2) 06/20/22 08:20 APTT 23.9 SECONDS (23.9-36.7) 06/20/22 08:20 Sodium 139 mmol/L (136-145) 06/22/22 04:10 Potassium 3.7 mmol/L (3.5-5.1) 06/22/22 04:10 Chloride 107 mmol/L (98-107) 06/22/22 04:10 Carbon Dioxide 22 mmol/L (22-29) 06/22/22 04:10 Anion Gap 13.7 (5-19) 06/22/22 04:10 BUN 11 mg/dL (8-23) 06/22/22 04:10 Creatinine 0.7 mg/dL (0.7-1.2) 06/22/22 04:10 GFR Calculation 111.8 mL/min (90-130) 06/22/22 04:10 Glucose 93 mg/dL (65-115) 06/22/22 04:10 POC Glucose 117 mg/dL (70-110) H 06/21/22 14:22 Estimat Average Glucose 108 06/20/22 08:20 Hemoglobin A1c 5.4 % (4.0-6.0) 06/20/22 08:20 Calculated Osmolality 287 mOsm/kg (285-295) 06/22/22 04:10 Calcium 8.2 mg/dL (8.5-10.5) L 06/22/22 04:10 Total Bilirubin 0.7 mg/dL (0.15-1.2) 06/22/22 04:10 AST 22 U/L (0-40) 06/22/22 04:10 ALT 19 U/L (0-41) 06/22/22 04:10 Alkaline Phosphatase 52 U/L (40-130) 06/22/22 04:10 Total Protein 5.3 g/dL (6.6-8.7) L 06/22/22 04:10 Albumin 3.4 g/dL (3.5-5.2) L 06/22/22 04:10 Globulin 1.9 g/dL (1.3-4.6) 06/22/22 04:10 Lipase 24 U/L (13-60) 06/20/22 08:20 Blood Type A Positive 06/20/22 08:20 Rho(D) Type Positive 06/20/22 08:20 Antibody Screen Negative 06/20/22 08:20 Vitals Last Vital Signs Temp 97.9 F 06/22/22 08:00 Pulse 89 06/22/22 08:00 Resp 16 06/22/22 08:00 BP 154/78 06/22/22 08:00 Pulse Ox 95 06/22/22 08:00 O2 Del Method 06/22/22 08:00 Discharge Plan Discharge Patient Disposition: Home Condition: Stable Prescriptions: New pantoprazole [Protonix] 40 mg tablet,delayed release (DR/EC) 40 mg PO BID Qty: 60 0RF polyethylene glycol 3350 [Miralax] 17 gram powder in packet 17 g PO DAILY Qty: 30 0RF Continued multivitamin Tablet 1 tab PO DAILY@12 simvastatin 40 mg tablet 40 mg PO BEDTIME lisinopril 10 mg tablet 10 mg PO BEDTIME Vitamin C-Myla Hips-Acerola 500 mg Tablet,Chewable 500 mg PO DAILY@12 albuterol sulfate 90 mcg/actuation HFA aerosol inhaler 2 puff INHALATION Q4H PRN (Reason: Shortness Of Breath) Vitamin D3 25 mcg (1,000 unit) Capsule 25 mcg PO DAILY@12 Discharge Orders: Discharge Order (Routine); Ordered 06/22/22 Ordered By: Lukas Estrella Referrals: Chip Mcmahon DO [Physician] - 2 weeks Discharge Diet: GI Soft Discharge Activity: Increase activity as tolerated Patient Instructions: GI Discharge Instructions, Opioid Safety, Pain Management Activity Restrictions/Additional Instructions: Take all medicine as prescribed Avoid all anti-inflammatories Reduce caffeine Follow-up with primary care provider, Dr. Mcmahon as instructed. Arrange follow-up with primary care provider in 4 to 7 days. Make sure breakfast as tolerated prior to discharge. Patient's Health Concerns: Upper GI bleed Assessment: Resolved Plan of Treatment: Continue Protonix twice daily, follow-up with GI Goals: No recurrent bleeding Discharge Attestations Time Spent in Discharge Care*: greater than 30 min Quality Metrics Clinical Quality Measures [ No reported AMI, CVA or VTE this stay] Coding Level of Care Code Acute g [facility] note Diagnoses Upper GI bleed K92.2 Abdominal pain R10.9 Hypertension I10 Hyperlipidemia E78.5
[2022-06-22] MEDS: polyethylene glycol 3350 Pkt 17 gm PO (08:55)
[2022-06-22] MEDS: pantoprazole 40 mg SDV IVP (09:41)
[2022-06-22 10:25] VITALS: BP 154/78; PULSE 89; RESP 16; TEMP 36.6; O2SAT 95
== END 2022-06-22 11:15 | disposition home or self-care (01) ==
LOC: ER 16:50 → MEDSURG 06-21 00:53
PROVIDERS: Surgery; Admitting Provider Internal Medicine; Emergency Provider Family Medicine; Visit Provider Internal Medicine
PROC: 0DJ08ZZ Inspection of Upper Intestinal Tract, Via Natural or Artificial Opening Endoscopic (ICD-10-PCS; CPT 43235; principal; 2022-06-21 11:30)
DX: K92.2 Gastrointestinal hemorrhage, unspecified (principal); K22.70 Barrett's esophagus without dysplasia; K29.50 Unspecified chronic gastritis without bleeding; B96.81 Helicobacter pylori [H. pylori] as the cause of diseases classified elsewhere; R10.9 Unspecified abdominal pain; I10 Essential (primary) hypertension; E78.5 Hyperlipidemia, unspecified; K44.9 Diaphragmatic hernia without obstruction or gangrene
CPT/HCPCS: 36415; 36416; 43239; 71045; 74018; 74177; 80048; 80053; 82962; 83036; 83690; 85014; 85018; 85025; 85610; 85730; 86850; 86900; 88305; 88342; 93005; 96365; 96375; 96376; 99285; C9113; G0378; J2270; J2405; J2704; J7030; Q9967

== ENCOUNTER → 2022-07-03 11:09 | Outpatient (BNVA) | payer MEDICARE, SELFPAY | PROVIDERS: Visit Provider Surgery | DX: Z09 Encounter for follow-up examination after completed treatment for conditions other than malignant neoplasm (principal); K29.70 Gastritis, unspecified, without bleeding; B96.81 Helicobacter pylori [H. pylori] as the cause of diseases classified elsewhere; K22.70 Barrett's esophagus without dysplasia; K42.9 Umbilical hernia without obstruction or gangrene | CPT/HCPCS: 99204 ==